=== PATIENT | female | born 1950 | race Caucasian/White ===

== ENCOUNTER 2021-05-22 06:25 | Day surgery (SDC) | payer MEDICARE, SELFPAY ==
[2021-05-17 10:05] VITALS: BMI 28.0
--- NOTE | 2021-05-21 09:45 | HO.ANESPROP2 ---
Documented by User: Roxana Whatley NP 05/21/21 09:46 HPI - Anesthesia Eval Consult details Narrative: 71yo F for Colonoscopy [facility] Past Medical History Medical History (Updated 05/17/21 @ 10:01 by Sherice Morales RN) Arthritis Barretts esophagus Elevated cholesterol GERD (gastroesophageal reflux disease) HTN (hypertension) Hx of mitral valve prolapse Sleep apnea Surgical History Surgical History (Updated 05/17/21 @ 10:01 by Sherice Morales RN) H/O colonoscopy History of esophagogastroduodenoscopy (EGD) Hx of breast biopsy Hx of cataract extraction Hx of foot surgery Hx of hysterectomy Hx of knee surgery Social History Social History Patient Tobacco Use Status: Never used Tobacco Use of substances other than those prescribed or required for medical reasons: No Advance Directives: No Advance Directives Information Provided: Yes Recently lost weight without trying: No Meds Allergies Allergy/AdvReac Type Severity Reaction Status Date / Time naproxen [NAPROXEN] Allergy Intermediate ITCHING Verified 05/22/21 06:51 Home Medications Medication Instructions Recorded Confirmed Last Taken Type aspirin 81 mg tablet,delayed 81 mg PO DAILY 05/17/21 05/17/21 Unknown History release atorvastatin 10 mg tablet 1 tab PO DAILY 05/17/21 05/17/21 Unknown History calcium carbonate 600 mg-vitamin 1 tab PO DAILY 05/17/21 05/17/21 Unknown History D3 5 mcg (200 unit) tablet celecoxib 200 mg capsule 1 cap PO DAILY 05/17/21 05/17/21 Unknown History ferrous sulfate 142 mg (45 mg 142 mg PO DAILY 05/17/21 05/17/21 Unknown History iron) tablet,extended release (Slow Fe) fluticasone propionate 50 1 spray INTRANASAL DAILY 05/17/21 05/17/21 Unknown History mcg/actuation nasal spray,suspension multivitamin 1 tab PO DAILY 05/17/21 05/17/21 Unknown History omeprazole 20 mg capsule,delayed 1 cap PO DAILY 05/17/21 05/17/21 05/22/21 History release 1 cap verapamil 240 mg 24 hr 1 cap PO DAILY 05/17/21 05/17/21 05/22/21 History capsule,extended release 1 cap Exam Exam Date and Time: May 21, 2021 0945 Height,Weight and Vital Signs: Height 5 ft 2 in Weight 69.4 kg Assessment and Plan Assessment Anesthesia Assessment: Chart Reviewed Documented by User: Navjot Terry MD 05/22/21 07:14 PMFSH Past Medical History Medical History (Updated 05/17/21 @ 10:01 by Sherice Morales RN) Arthritis Barretts esophagus Elevated cholesterol GERD (gastroesophageal reflux disease) HTN (hypertension) Hx of mitral valve prolapse Sleep apnea Family History Family history of problems with anesthesia: No Surgical History Surgical History (Updated 05/17/21 @ 10:01 by Sherice Morales RN) H/O colonoscopy History of esophagogastroduodenoscopy (EGD) Hx of breast biopsy Hx of cataract extraction Hx of foot surgery Hx of hysterectomy Hx of knee surgery History of Problems with Anesthesia: No Social History Social History Patient Tobacco Use Status: Never used Tobacco Use of substances other than those prescribed or required for medical reasons: No Advance Directives: No Advance Directives Information Provided: Yes Recently lost weight without trying: No Meds Allergies Allergy/AdvReac Type Severity Reaction Status Date / Time naproxen [NAPROXEN] Allergy Intermediate ITCHING Verified 05/22/21 06:51 Home Medications Medication Instructions Recorded Confirmed Last Taken Type aspirin 81 mg tablet,delayed 81 mg PO DAILY 05/17/21 05/17/21 Unknown History release atorvastatin 10 mg tablet 1 tab PO DAILY 05/17/21 05/17/21 Unknown History calcium carbonate 600 mg-vitamin 1 tab PO DAILY 05/17/21 05/17/21 Unknown History D3 5 mcg (200 unit) tablet celecoxib 200 mg capsule 1 cap PO DAILY 05/17/21 05/17/21 Unknown History ferrous sulfate 142 mg (45 mg 142 mg PO DAILY 05/17/21 05/17/21 Unknown History iron) tablet,extended release (Slow Fe) fluticasone propionate 50 1 spray INTRANASAL DAILY 05/17/21 05/17/21 Unknown History mcg/actuation nasal spray,suspension multivitamin 1 tab PO DAILY 05/17/21 05/17/21 Unknown History omeprazole 20 mg capsule,delayed 1 cap PO DAILY 05/17/21 05/17/21 05/22/21 History release 1 cap verapamil 240 mg 24 hr 1 cap PO DAILY 05/17/21 05/17/21 05/22/21 History capsule,extended release 1 cap Exam Airway Mallampati Class: II TM Dist: >3cm Neck ROM: Full Loose/Missing/Broken Teeth: No Heart: [id number] Lungs: cta b/l Assessment and Plan Assessment Anesthesia Assessment: Anesthesia Plan Discussed Final Anesthetic Review Family History of Problems with Anesthesia: No History of Problems with Anesthesia: No NPO: Yes ASA Class: II Final Preanesthetic Review: No Changes in Pt Med Stat, Meds/Allgs Chart Reviewed, Consent Obtained/Reviewed and Anes Risks/Benef Reviewed Patient Risk: Intermediate Procedure Risk: Low Assessment/Block/Sedation in SS: Assess/Block/Sedation-SS Anesthetic Plan Anesthetic Plan: MAC: and Agree w/ Assess. and Plan Disposition: Standard PACU
[2021-05-22 06:33] VITALS: BP 144/78; PULSE 90; RESP 17; TEMP 36; O2SAT 100; BMI 27.1
[2021-05-22] MEDS: Lactated Ringers 1,000 ML 100 ML IVCONT (06:52)
--- NOTE | 2021-05-22 07:20 | MHC.SHP ---
Pre-Procedural Eval Section A Date of Service: 05/22/21 Section B Chief Complaint: screening Details of Present Illness: see h&p no changes Relevant Family History (Specify if Yes): No Relevant Social History: None Present Medications: see Short Stay Collaborative assessment Medical History: Significant History (see h&p) History of Previous Operations: No relevant previous surgery Allergies: Allergies Allergy/AdvReac Type Severity Reaction Status Date / Time naproxen [NAPROXEN] Allergy Intermediate ITCHING Verified 05/22/21 06:51 Review of Systems Sugical H&P ROS: Negative: Constitution, Cardiovascular, Respiratory, Neurological, Psychiatric, Hem-Onc, Allergic/Immunologic, Gastrointestinal, Genitourinary, Musculoskeletal, Integumentary, Endocrine and Eyes/Ears/Nose/Throat Exam Surgical H&P Exam: Normal: HEENT, Normal: Heart, Normal: Lungs, Normal: Extremities, Normal: Abdomen, Normal: Skin and Normal: Neurological Plan Diagnosis/Plan: Unchanged I have reviewed the history and physical and performed a pertinent physical examination on my patient. No changes have occurred unless specified.
[2021-05-22 08:04] VITALS: BP 120/58; PULSE 90; RESP 16; TEMP 36.7; O2SAT 98
--- NOTE | 2021-05-22 08:09 | P.BOP_ITS ---
Brief Operative Note Date of Service: 05/22/21 Pre-op diagnosis: screening Post-op diagnosis: same (colon polyps) Procedure: colonoscopy Surgeon: Jerad Jenkins Anesthesia: MAC Was an Bench Lay Out Technician used for this Procedure?: No Estimated blood loss (mL): 2 Pathology: other (polyps x2) Condition: stable Disposition: PACU
[2021-05-22 08:19] VITALS: BP 119/62; PULSE 75; RESP 16; O2SAT 98
--- NOTE | 2021-05-22 09:27 | OP_ITS ---
SURGEON: Jerad Jenkins MD INDICATIONS: Colon cancer screening and prior history of adenomatous colon polyps. PREOPERATIVE DIAGNOSIS: POSTOPERATIVE DIAGNOSIS: PROCEDURE PERFORMED: Colonoscopy to the terminal ileum with biopsy and snare polypectomy. ESTIMATED BLOOD LOSS: COMPLICATIONS: ANESTHESIA: ASSISTANTS: SPECIMENS: MEDICATIONS: Monitored anesthesia care. DESCRIPTION OF PROCEDURE: The history and physical performed, the risks and benefits of the procedure were explained to the patient. Informed consent was obtained. The patient was placed in the left lateral decubitus position. A digital rectal exam was performed and was found to be normal. The Olympus pediatric video colonoscope was introduced into the rectum and advanced to the cecum without difficulty. The cecum was identified by transillumination, palpation, and identification of the ileocecal valve. Examination was performed. The scope was removed. She tolerated the procedure well, returned to the recovery area in stable condition. FINDINGS: The terminal ileum was examined and appeared normal. The visualized colonic mucosa was normal. The quality of the prep was good. Two polyps were identified and removed. The 1st was located in the cecum measuring 4 mm and was removed with the biopsy forceps. The 2nd was located at 45 cm and measured 7 mm. This was removed with a cold snare and recovered via suction. No other polyps were identified. Retroflexed examination showed moderate-sized internal hemorrhoids. IMPRESSION: Colon polyps. RECOMMENDATION: Follow up the biopsy results. MD JUAN DAVID Dykes/LYLE / [id number] MTDD
== END 2021-05-22 08:51 | disposition home or self-care (01) ==
PROVIDERS: PCP Internal Medicine; Visit Provider Internal Medicine Gastroenterology
PROC: 0DJD8ZZ Inspection of Lower Intestinal Tract, Via Natural or Artificial Opening Endoscopic (ICD-10-PCS; CPT 45378; principal; 2021-05-22 07:30)
DX: Z12.11 Encounter for screening for malignant neoplasm of colon (principal); Z86.010 Personal history of colon polyps; D12.0 Benign neoplasm of cecum; K63.5 Polyp of colon; K64.8 Other hemorrhoids; K21.9 Gastro-esophageal reflux disease without esophagitis; G47.33 Obstructive sleep apnea (adult) (pediatric); I10 Essential (primary) hypertension; E78.5 Hyperlipidemia, unspecified; Z79.82 Long term (current) use of aspirin; Z79.899 Other long term (current) drug therapy; Z87.891 Personal history of nicotine dependence
CPT/HCPCS: 45385; 45380; 88300; 88305